=== PATIENT | male | born 1950 | race Caucasian/White ===

== ENCOUNTER 2017-07-14 15:11 | Emergency (ER) | payer MEDICARE, MEDICAID ==
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
== END 2017-07-14 18:00 | disposition home or self-care (01) ==
LOC: ER 15:11
DX: S00.01XA Abrasion of scalp, initial encounter (principal); V09.9XXA Pedestrian injured in unspecified transport accident, initial encounter; Y93.89 Activity, other specified; Y92.480 Sidewalk as the place of occurrence of the external cause; Y99.8 Other external cause status
CPT/HCPCS: 70450-TC; Z7502